=== PATIENT | male | born 1970 | race Caucasian/White ===

== ENCOUNTER 2017-01-31 10:50 | Emergency (ER) | payer SELFPAY ==
[~2017-01-31] VITALS: Ht 175.3 cm; Wt 83.0 kg
[~2017-01-31 10:50] MED LIST: PENI500T PO; TRAM50TA PO
[2017-01-31 11:04] VITALS: BP 167/90
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
== END 2017-01-31 11:44 | disposition left against medical advice (07) ==
LOC: ER 10:50
DX: L03.114 Cellulitis of left upper limb (principal); L02.414 Cutaneous abscess of left upper limb; I10 Essential (primary) hypertension; F20.9 Schizophrenia, unspecified; F12.10 Cannabis abuse, uncomplicated; F15.10 Other stimulant abuse, uncomplicated
CPT/HCPCS: 99281

== ENCOUNTER 2017-02-01 09:04 | Emergency (ER) | payer SELFPAY ==
[~2017-02-01] VITALS: Ht 172.7 cm; Wt 83.9 kg
--- NOTE | 2017-02-01 09:42 | PHYS DOC ---
Past History Past Medical History: Hypertension Past Surgical History: Other Alcohol Use: None Additional Alcohol Information: denies use Drug Use: None Social History Narrative: denies use of illicit drugs Adult General Chief Complaint Chief Complaint: UPPER EXTREMITY SWELLING HPI HPI 46-year-old male presenting to the emergency department today with left arm swelling and pain. He reports falling and sustaining an abrasion to the volar surface of his left forearm. He reports this happened 3 days ago. Since then he is noticed worsening redness with swelling in his left forearm. Currently he denies having pain but he does have pain in his forearm occasionally which she describes as sharp nonradiating mild and without alleviating factors. He denies numbness weakness or tingling. Review of systems is negative for chest pain shortness of breath abdominal pain. He reports feeling chills at home. All other review of systems is negative unless otherwise noted in history of present illness. Review of Systems Review of Systems SEE ABOVE. Current Medications Current Medications Current Medications Medications (Trade) Dose Ordered Sig/Negar Start Time Stop Time Status Last Admin Dose Admin Sodium Chloride 500 ml @ 0 mls/hr 1X ONCE 02/01/17 09:30 02/01/17 09:31 UNV Allergies Allergies Allergies Coded Allergies Type Severity Reaction Last Updated Verified No Known Drug Allergies 02/24/16 No Physical Exam Physical Exam Constitutional: Well developed, well nourished, no acute distress, non-toxic appearance. HENT: Normocephalic, atraumatic, bilateral external ears normal, oropharynx moist, no oral exudates, nose normal. [] Eyes: PERRLA, EOMI, conjunctiva normal, no discharge. [] Neck: Normal range of motion, no tenderness, supple, no stridor. Cardiovascular:Heart rate regular rhythm, no murmur [] Lungs & Thorax: Bilateral breath sounds clear to auscultation [] Abdomen: Bowel sounds normal, soft, no tenderness, no masses, no pulsatile masses. [] Skin: Warm, dry, no erythema, no rash. Back: No tenderness, no CVA tenderness. [] Extremities: The patient's left upper extremity is warm to touch with erythema extending from the wrist to the elbow. There is fluctuance in the volar surface midway between the wrist and the elbow. The arm is swollen. There is no crepitus to palpation. Palpable pulse distally with 2 second cap refill. The patient is able to given a okay sign, given a thumbs up, and cross fingers without difficulty. Normal sensation in the motor ulnar and radial nerve distribution.. Neurologic: Alert and oriented X 3, normal motor function, normal sensory function, no focal deficits noted. [] Psychologic: Affect normal, judgement normal, mood normal. [] Current Patient Data Vital Signs Vital Signs Date Time Temp Pulse Resp B/P (MAP) Pulse Ox O2 Delivery O2 Flow Rate FiO2 02/01/17 09:10 98.6 107 18 95 Room Air EKG EKG [] Radiology/Procedures Radiology/Procedures [] Course & Med Decision Making Course & Med Decision Making Pertinent Labs and Imaging studies reviewed. (See chart for details) [] 46-year-old male presenting to the emergency department today with left arm cellulitis and abscess formation. IV established and blood work obtained. 500 mL bolus of saline was placed. Pt was placed at an nothing by mouth status. X- ray unremarkable. The patient was then transferred to [facility] for IV antibiotics and for orthopedic surgery consultation for abscess debridement possibly in the operating room. I discussed the case with our orthopedic surgeon Dr. Emerson. Dragon Disclaimer Dragon Disclaimer This chart was dictated in whole or in part using Voice Recognition software in a busy, high-work load, and often noisy Emergency Department environment. It may contain unintended and wholly unrecognized errors or omissions. Departure Departure: Impression: Primary Impression: Abscess of left forearm Additional Impression: Cellulitis of left forearm Disposition: ADMITTED INPATIENT Admitting Physician: Other Condition: STABLE Referrals: JEET LOOMIS APRN (PCP) Critical Care Time Critical care time was 35 minutes exclusive of procedures. Time was spent evaluating the patient, reviewing x-rays, reviewing blood work, discussing with the admitting and consulting providers, and coordinating the patient transferred to appropriate care. Limb threatening illness. Problem Qualifiers THO CISNEROS MD February 01, 2017 09:42
[2017-02-01] MEDS ORDERED: VANCOMYCIN PER PHARMACY MC PRN (09:45)
[2017-02-01] MEDS ORDERED: IV NORMAL SALINE 500ML 500 ML IV ONE (10:00)
[2017-02-01] MEDS ORDERED: PIP/TAZO PER PHARMACY MC PRN (10:00)
[2017-02-01 10:01] LABS: BASO # 0.1 x10^3/uL (0.0-0.2); BASO % 0 % (0-3); EOS # 0.1 x10^3/uL (0.0-0.7); EOS % 0 % (0-3); HEMOGLOBIN 13.1 g/dL (13.0-17.5); LYMPH # 1.8 x10^3/uL (1.0-4.8); LYMPH % 10 % (24-48); MEAN CORPUSCULAR HEMOGLOBIN 30 pg (25-35); MEAN CORPUSCULAR HGB CONC 35 g/dL (31-37); MEAN CORPUSCULAR VOLUME 87 fL (79-100); MONO # 1.7 x10^3/uL (0.0-1.1); MONO % 10 % (0-9); NEUT # 13.7 x10^3uL (1.8-7.7); NEUT % 79 % (31-73); PLATELET COUNT 262 x10^3/uL (140-400); RED BLOOD COUNT 4.37 x10^6/uL (4.30-5.70); WHITE BLOOD COUNT 17.3 x10^3/uL (4.0-11.0)
[2017-02-01] MEDS ORDERED: PIPERACILLIN/TAZOBACTAM 3.375 GM VIAL IV ONE (10:03)
[2017-02-01] MEDS ORDERED: IV NORMAL SALINE 50ML 50 ML ONE (10:03)
[2017-02-01 10:04] LABS: CALCIUM 8.9 mg/dL (8.5-10.1); CREATININE 0.9 mg/dL (0.7-1.3); GFR 90.1; POTASSIUM 3.7 mmol/L (3.5-5.1)
[2017-02-01] MEDS ORDERED: PIPERACILLIN/TAZOBACTAM 3.375 GM in IV NORMAL SALINE 50ML 50 ML IV ONE (10:15)
--- NOTE | 2017-02-01 10:20 | RAD ---
Exam performed: 2 views leftforearm. Clinical indication: Patient fell on 01/29/17 with swelling. Increasing swelling and redness with hot to touch with purulent discharge Date of Service: 02/01/17 Comparison: None available Findings: Two-View radiograph examination of the forearm to include most of the wrist and elbow reveal the osseous structures to be intact and well aligned. There is diffuse soft tissue swelling in the left forearm with a more focal soft tissue swelling in the mid forearm. A definite foreign body is not detected. Impression: 1. Soft tissue swelling in the left forearm with a more focal swelling in the mid forearm region. An underlying abscess is not excluded. Correlate with clinical findings. 2. No underlying bony abnormality is seen.
[2017-02-01 10:41] LABS: % BANDS 1 % (0-9); % BASOS 1 % (0-3); % LYMPHS 15 % (24-48); % MONOS 13 % (0-10); % SEGS 70 % (35-66); PLT ESTIMATE ADEQUATE (ADEQUATE)
[2017-02-01] MEDS ORDERED: IV NORMAL SALINE 1,000ML 1,000 ML IV ONE (10:45)
[2017-02-01 11:10] VITALS: BP 144/91
[2017-02-01] MEDS ORDERED: VANCOMYCIN 2 GM in IV NORMAL SALINE 500ML 500 ML IV ONE (11:30)
== END 2017-02-01 11:20 | disposition short-term general hospital (02) ==
LOC: ER 09:04 → EEVIPCON 09:04 → ER 11:20
DX: L03.114 Cellulitis of left upper limb (principal); L02.414 Cutaneous abscess of left upper limb; I10 Essential (primary) hypertension
CPT/HCPCS: 36415; 73090; 80048; 83605; 85007; 85027; 87040; 96365; 99291; J2543; J7040

== ENCOUNTER 2017-02-11 10:58 | Emergency (ER) | payer SELFPAY ==
[~2017-02-11] VITALS: Ht 175.3 cm; Wt 81.6 kg
[2017-02-11 11:12] VITALS: BP 163/98
--- NOTE | 2017-02-11 17:50 | ED.ADGEN ---
Past History Past Medical History: Hypertension Past Surgical History: Other Alcohol Use: None Drug Use: None Adult General Chief Complaint Chief Complaint Dental pain, arm pain HPI HPI Patient is a 46-year-old male released from [facility] for treatment arm abscess who presents with complaints of continued arm pain and dental abscess. She did have wound VAC system in place which she removed by himself. Patient has not follow-up with his PCP or surgeon. Patient angry, verbally aggressive with posturing towards ED staff members demanding pain medications upon arrival. Review of Systems Review of Systems ROS as per HPI. Allergies Allergies Allergies Coded Allergies Type Severity Reaction Last Updated Verified No Known Drug Allergies 02/24/16 No Physical Exam Physical Exam Constitutional: Well developed, well nourished, no acute distress, non-toxic appearance. HENT: Normocephalic, atraumatic, bilateral external ears normal, oropharynx moist, no oral exudates, nose normal. Eyes: PERRL.auscultation [ Neurologic: Alert and oriented X 3, normal motor function, normal sensory function, no focal deficits noted. Psychologic: Affect, agitated Current Patient Data Vital Signs Vital Signs Date Time Temp Pulse Resp B/P (MAP) Pulse Ox O2 Delivery O2 Flow Rate FiO2 02/11/17 11:12 98.2 103 18 97 Room Air EKG EKG [] Radiology/Procedures Radiology/Procedures [] Course & Med Decision Making Course & Med Decision Making Pertinent Labs and Imaging studies reviewed. (See chart for details) [Security requested on ED arrival due to patient's verbal threats and physical posturing towards nursing staff members. Patient provided a medication for discharge instruction follow-up with PCP and dentist regarding further evaluation of and and dental caries] Final Impression Final Impression [1. dental pain 2. arm pain 3. drug seeking behavior] Problems: Dragon Disclaimer Dragon Disclaimer This electronic medical record was generated, in whole or in part, using a voice recognition dictation system. ARMIDA NUÑEZ DO February 11, 2017 17:50
== END 2017-02-11 11:21 | disposition home or self-care (01) ==
LOC: ER 10:58
DX: K08.89 Other specified disorders of teeth and supporting structures (principal); M79.603 Pain in arm, unspecified; I10 Essential (primary) hypertension; Z76.5 Malingerer [conscious simulation]
CPT/HCPCS: 99281

== ENCOUNTER 2017-02-14 11:22 | Emergency (ER) | payer SELFPAY ==
[~2017-02-14] VITALS: Ht 175.3 cm; Wt 83.0 kg
[2017-02-14 11:22] VITALS: BP 140/67
[2017-02-14] MEDS ORDERED: NEOMYCIN/BACITRAC/POLY TOPICAL OINTMENT 28GM TUBE. TP ONE ×2 (12:25→12:30)
--- NOTE | 2017-02-14 12:34 | PHYS DOC ---
Past History Past Medical History: Hypertension Past Surgical History: Other Alcohol Use: None Drug Use: None Adult General Chief Complaint Chief Complaint: WOUND CHECK HPI HPI This 46-year-old man presents with a wound on his left forearm for aspect these had for quite some time. He has had a some sort of a wound dressing on it and a sponge dressing in it at the present time but he has no idea how he got it. He states that he is homeless and walks from hospital to hospital and he just wants pain medications now Review of Systems Review of Systems Constitutional: Denies fever or chills [] Eyes: Denies change in visual acuity, redness, or eye pain [] HENT: Denies nasal congestion or sore throat [] Respiratory: Denies cough or shortness of breath [] Cardiovascular: No additional information not addressed in HPI [] GI: Denies abdominal pain, nausea, vomiting, bloody stools or diarrhea [] : Denies dysuria or hematuria [] Musculoskeletal: Denies back pain or joint pain [] Integument: Denies rash or skin lesions [] Neurologic: Denies headache, focal weakness or sensory changes [] Endocrine: Denies polyuria or polydipsia [] Current Medications Current Medications Current Medications Medications (Trade) Dose Ordered Sig/Negar Start Time Stop Time Status Last Admin Dose Admin Neomycin/ Polymyxin/ Bacitracin (Triple Antibiotic) 1 juan 1X ONCE 02/14/17 12:30 02/14/17 12:31 Allergies Allergies Allergies Coded Allergies Type Severity Reaction Last Updated Verified No Known Drug Allergies 02/24/16 No Physical Exam Physical Exam Constitutional: Well developed, well nourished, no acute distress, non-toxic appearance. The patient appears unkempt] HENT: Normocephalic, atraumatic, bilateral external ears normal, oropharynx moist, no oral exudates, nose normal. [] Eyes: PERRLA, EOMI, conjunctiva normal, no discharge. [] Neck: Normal range of motion, no tenderness, supple, no stridor. [] Cardiovascular:Heart rate regular rhythm, no murmur [] Lungs & Thorax: Bilateral breath sounds clear to auscultation [] Abdomen: Bowel sounds normal, soft, no tenderness, no masses, no pulsatile masses. [] Skin: Warm, dry, no erythema, no rash. Patient is an open wound measuring about a centimeters by about 10 cm in the left forearm. It is full-thickness wound going down to the muscles there is a little bit of purulence at the base and some minimal erythema around the edges Back: No tenderness, no CVA tenderness. [] Extremities: No tenderness, no cyanosis, no clubbing, ROM intact, no edema. Patient has an area measuring 10 cm x 8 cm of full-thickness skin loss with some purulence at the base is a slight amount of erythema around the edges Neurologic: Alert and oriented X 3, normal motor function, normal sensory function, no focal deficits noted. [] Psychologic: Affect normal, judgement normal, mood normal. [] Current Patient Data Vital Signs Vital Signs Date Time Temp Pulse Resp B/P (MAP) Pulse Ox O2 Delivery O2 Flow Rate FiO2 02/14/17 11:22 98.9 99 18 98 Room Air EKG EKG [] Radiology/Procedures Radiology/Procedures [] Impressions: Open wound left forearm Course & Med Decision Making Course & Med Decision Making Pertinent Labs and Imaging studies reviewed. (See chart for details) wound culture was taken the wound was dressed with damp to dry dressing and an Oral wrap he was given follow-up placed on clindamycin and hydrocodone [] Dragon Disclaimer Dragon Disclaimer This chart was dictated in whole or in part using Voice Recognition software in a busy, high-work load, and often noisy Emergency Department environment. It may contain unintended and wholly unrecognized errors or omissions. Departure Departure: Referrals: JEET LOOMIS APRN (PCP) BRANT OJEDA MD February 14, 2017 12:34
[2017-02-14] MEDS ORDERED: HYDR-2758 PO (12:42)
[2017-02-14] MEDS ORDERED: CLIN300C8 PO (12:42)
== END 2017-02-14 12:48 | disposition home or self-care (01) ==
LOC: ER 11:22
DX: S51.802A Unspecified open wound of left forearm, initial encounter (principal); I10 Essential (primary) hypertension; Z59.0 Homelessness; X58.XXXA Exposure to other specified factors, initial encounter; Y93.89 Activity, other specified; Y92.89 Other specified places as the place of occurrence of the external cause; Y99.8 Other external cause status
CPT/HCPCS: 87070; 99283

== ENCOUNTER 2017-02-18 23:38 | Emergency (ER) | payer SELFPAY ==
[~2017-02-18] VITALS: Ht 175.3 cm; Wt 83.0 kg
[~2017-02-18 23:38] MED LIST changes: +CLIN300C8 PO; +HYDR-2758 PO
[2017-02-19] VITALS: BP 153/91
--- NOTE | 2017-02-19 00:07 | ED.ADGEN ---
Past History Past Medical History: Hypertension Past Surgical History: No Surgical History Alcohol Use: Occasionally Drug Use: Methamphetamine Adult General Chief Complaint Chief Complaint Wound evaluation HPI HPI Patient is a 46-year-old homeless male with history of IV drug abuse evaluation of left forearm wound. Patient previously admitted to [facility] for surgical debridement of wound with wound VAC placed. Patient left AGAINST MEDICAL ADVICE with wound VAC in place. He has since been living in the [facility] under a bridge. He periodically checks into the emergency department for evaluation of the wound and request for pain control. Patient was seen in this facility with the same complaint one week ago by this provider in 4 days ago by a colleague. Was recently prescribed clindamycin and ibuprofen which he is taking and is currently out of hydrocodone and is requesting refill. No other acute symptoms or complaints. Review of Systems Review of Systems Review symptoms as per history of present illness. Allergies Allergies Allergies Coded Allergies Type Severity Reaction Last Updated Verified No Known Drug Allergies 02/24/16 No Physical Exam Physical Exam Constitutional: Well developed, well nourished, no acute distress, non-toxic appearance. [] HENT: Normocephalic, atraumatic, bilateral external ears normal, oropharynx moist, no oral exudates, nose normal. [] Eyes: PERRLA, EOMI, conjunctiva normal, no discharge. [] Neck: Normal range of motion, no tenderness, supple, no stridor. [] Cardiovascular:Heart rate regular rhythm, no murmur [] Lungs & Thorax: Bilateral breath sounds clear to auscultation [] Abdomen: Bowel sounds normal, soft, no tenderness, no masses, no pulsatile masses. [] Skin: Warm, dry, no erythema, no rash. [] Back: No tenderness, no CVA tenderness. [] Extremities: Open 10 centimeters surgical incision to left flexor forearm with exposed muscle. There is slight erythema surrounding the wound margins purulent drain. No streaking or induration. Neurologic: Alert and oriented X 3, normal motor function, normal sensory function, no focal deficits noted. [] Psychologic: Affect normal, judgement normal, mood normal. [] Current Patient Data Vital Signs Vital Signs Date Time Temp Pulse Resp B/P (MAP) Pulse Ox O2 Delivery O2 Flow Rate FiO2 02/18/17 23:55 98.0 84 20 96 EKG EKG [] Radiology/Procedures Radiology/Procedures [] Course & Med Decision Making Course & Med Decision Making Pertinent Labs and Imaging studies reviewed. (See chart for details) [Chronically nonhealing open left forearm wound. Currently does not appear infected. Most recent culture + MRSA, septal to clindamycin. Wound dressed in the emergency department and is nations instructed follow-up with PCP. Short course of hydrocodone prescribed. ] Final Impression Final Impression [1. Wound evaluation.] Problems: Dragon Disclaimer Dragon Disclaimer This electronic medical record was generated, in whole or in part, using a voice recognition dictation system. ARMIDA NUÑEZ DO February 19, 2017 00:07
== END 2017-02-19 00:20 | disposition home or self-care (01) ==
LOC: ER 23:38
DX: Z76.0 Encounter for issue of repeat prescription (principal); S51.802D Unspecified open wound of left forearm, subsequent encounter; I10 Essential (primary) hypertension; F15.10 Other stimulant abuse, uncomplicated; X58.XXXD Exposure to other specified factors, subsequent encounter
CPT/HCPCS: 99283

== ENCOUNTER 2017-02-21 06:07 | Emergency (ER) | payer SELFPAY ==
[~2017-02-21] VITALS: Ht 172.7 cm; Wt 83.0 kg
[~2017-02-21 06:07] MED LIST changes: +CLINDAMYCIN 900 MG/6 ML VIAL. IM ONE
[2017-02-21] MEDS ORDERED: CLINDAMYCIN 900 MG/6 ML VIAL. ONE (06:45)
[2017-02-21 07:00] VITALS: BP 158/104
--- NOTE | 2017-02-21 07:11 | ED.ADGEN ---
Past History Past Medical History: Hypertension Past Surgical History: No Surgical History Alcohol Use: Occasionally Drug Use: Methamphetamine Adult General HPI HPI Patient is a 56-year-old man, history of IV drug abuse, hypertension, who presents emergency department for a wound check. Patient has been seen frequently in the emergency department for similar wound checks, after I&D with debridement was performed a [facility], patient is at wound VAC in place, but did leave AGAINST MEDICAL ADVICE from [facility]. Patient denies any any new discharge drainage or increasing pain from the arm, fevers or chills, any nausea or vomiting, any chest pain or shortness breath. He is very animated in the emergency department, a cooperative with questioning. He states that he did not take his medications after an encounter with the police were there were taken away. He does have an unfilled prescription for Percocet with him for her previous ED visit. Patient's tetanus is up-to-date. Review of Systems Review of Systems Constitutional: Denies fever or chills [] Eyes: Denies change in visual acuity, redness, or eye pain [] HENT: Denies nasal congestion or sore throat [] Respiratory: Denies cough or shortness of breath [] Cardiovascular: No additional information not addressed in HPI [] GI: Denies abdominal pain, nausea, vomiting, bloody stools or diarrhea [] : Denies dysuria or hematuria [] Musculoskeletal: Denies back pain or joint pain [] pain in the left upper extremity. Integument: Denies rash or skin lesions [] Current Medications Current Medications Current Medications Medications (Trade) Dose Ordered Sig/[facility] Start Time Stop Time Status Last Admin Dose Admin Clindamycin Phosphate (Cleocin) 900 mg STK-MED ONCE 02/21/17 06:45 02/21/17 06:46 DC Allergies Allergies Allergies Coded Allergies Type Severity Reaction Last Updated Verified No Known Drug Allergies 02/24/16 No Physical Exam Physical Exam Constitutional: Well developed, well nourished, no acute distress, non-toxic appearance. [] HENT: Normocephalic, atraumatic, bilateral external ears normal, oropharynx moist, no oral exudates, nose normal. [] Eyes: PERRLA, EOMI, conjunctiva normal, no discharge. [] Neck: Normal range of motion, no tenderness, supple, no stridor. [] Cardiovascular:Heart rate regular rhythm, no murmur, S1, S2, rubs or gallops. [] Lungs & Thorax: Bilateral breath sounds clear to auscultation, no wheezing, rhonchi, rales. No chest or crepitus or tenderness. [] Abdomen: Bowel sounds normal, soft, no tenderness, no masses, no pulsatile masses. [] Skin: Warm, dry, no erythema, no rash. [] Back: No tenderness, no CVA tenderness. [] Extremities: Patient with an centimeter by 5 cm as widest point post-excisional wound on his left forearm, muscle fascia visible, which is clean, clean bandages above, patient with a dirty outer oral wrap and base, no discharge or drainage, no evidence of active infection, no other concerning findings identified no cyanosis, no clubbing, ROM intact, no edema. [] Neurologic: Alert and oriented X 3, normal motor function, normal sensory function, no focal deficits noted. [] Psychologic: Affect normal, judgement normal, mood normal. [] EKG EKG Not indicated. [] Radiology/Procedures Radiology/Procedures Not indicated. [] Course & Med Decision Making Course & Med Decision Making Pertinent Labs and Imaging studies reviewed. (See chart for details) Wound examined and dressing change in the emergency department, Xeroform gauze with ABDs and Oral wrap placed. Patient has been following up in the emergency department for wound checks on a regular basis. Is not complaining of pain at this time. Patient agreeable to receiving an IM injection of clindamycin, which was administered without issue. He was also given a refill of his prescriptions for both tramadol and clindamycin which she states he does not currently have with him. He is noted to have a prescription for Percocet which is unfilled. Instructed to continue using ibuprofen and prescription medications as needed for discomfort, importance of good wound care discussed, he does have wound care and follow-up instructions have been discussed previously, and he states he is aware of concerning symptoms that prompt return to the ED for additional evaluation, as well as follow-up. Patient is currently homeless and living under a bridge, but does not request any additional assistance at this time, he has been given information previously per nursing staff., Regarding both housing availability, and clinic follow-up. Patient noted to be hypertensive in the emergency department, and is a history of hypertension, but is also extremely active and moving his extremity during attempts to blood pressure, initially 170s over 110, repeat is 158/104, heart rate is in the 80s, oxygen saturation is in the mid 90s, respiratory rate is 20 and unlabored. No evidence of acutely concerning findings on examination. Patient again given clear and detailed return instructions and precautions, reprinted prescriptions, discharged to follow-up as stated, and return to the ED for concerning symptoms as discussed. Final Impression Final Impression [] Problems: (1) Open wound of left forearm Qualifiers: Qualified Codes: S51.802D - Unspecified open wound of left forearm, subsequent encounter Dragon Disclaimer Dragon Disclaimer This electronic medical record was generated, in whole or in part, using a voice recognition dictation system. Departure Disposition: 01 HOME, SELF-CARE Condition: STABLE JASSON VOSS DO February 21, 2017 07:10
[2017-02-22] MEDS ORDERED: HYDR-2758 PO (17:12)
[2017-02-22] MEDS ORDERED: SULF1TAB24 PO (17:12)
== END 2017-02-21 07:05 | disposition home or self-care (01) ==
LOC: ER 06:07
DX: S51.802A Unspecified open wound of left forearm, initial encounter (principal); I10 Essential (primary) hypertension; F15.10 Other stimulant abuse, uncomplicated; X58.XXXA Exposure to other specified factors, initial encounter; Y93.89 Activity, other specified; Y99.8 Other external cause status; Y92.89 Other specified places as the place of occurrence of the external cause
CPT/HCPCS: 96372; 99283-25

== ENCOUNTER 2017-02-22 16:20 | Emergency (ER) | payer SELFPAY ==
[~2017-02-22] VITALS: Ht 172.7 cm; Wt 83.0 kg
[~2017-02-22 16:20] MED LIST changes: -CLINDAMYCIN 900 MG/6 ML VIAL. IM ONE
[2017-02-22 17:00] VITALS: BP 136/72
[2017-02-22] MEDS ORDERED: SULF1TAB24 PO (17:12)
[2017-02-22] MEDS ORDERED: HYDR-2758 PO (17:12)
[2017-02-22] MEDS ORDERED: HYDROmorphone PF 1 MG/ML DISP.SYRIN IM ONE (17:15)
[2017-02-22] MEDS ORDERED: cefTRIAXone IM 1 GM VIAL IM ONE (17:15)
[2017-02-22] MEDS ORDERED: LORazepam 1 MG TABLET PO ONE (17:15)
--- NOTE | 2017-02-23 07:02 | PHYS DOC ---
Past History Past Medical History: Hypertension, Other Past Surgical History: No Surgical History Alcohol Use: Occasionally Drug Use: Methamphetamine Adult General Chief Complaint Chief Complaint: WOUND CHECK HPI HPI 38-year-old male presenting to the emergency department today for a wound check. He had a debridement procedure that he did not allow to be completed after leaving AGAINST MEDICAL ADVICE. He is here for wound check and antibiotic therapy. Onset today. Location left arm. Duration intermittent. No alleviating factors. He has pain in his left arm that is sharp moderate intermittent. Review of systems is negative for chest pain shortness of breath nausea vomiting abdominal pain. All other review of systems is negative unless otherwise noted in history of present illness. Pertinent physical exam findings show a large 8 cm x 4 cm debrided wound that does not have associated cellulitis. It is healing poorly however the patient refuses to be admitted or have further medical treatment for this wound. He just desires antibiotics. ED course: The patient was given intramuscular antibiotics and pain medications and subsequently discharged home to follow up with PCP over the next 2-3 days. Review of Systems Review of Systems SEE ABOVE. Current Medications Current Medications Current Medications Medications (Trade) Dose Ordered Sig/Negar Start Time Stop Time Status Last Admin Dose Admin Ceftriaxone Sodium (Rocephin Im) 1 gm 1X ONCE 02/22/17 17:15 02/22/17 17:16 DC 02/22/17 17:15 1 GM Hydromorphone HCl (Dilaudid) 0.5 mg 1X ONCE 02/22/17 17:15 02/22/17 17:16 DC 02/22/17 17:15 0.5 MG Lorazepam (Ativan) 1 mg 1X ONCE 02/22/17 17:15 02/22/17 17:16 DC 02/22/17 17:15 1 MG Allergies Allergies Allergies Coded Allergies Type Severity Reaction Last Updated Verified No Known Drug Allergies 02/21/17 No Physical Exam Physical Exam Constitutional: Well developed, well nourished, no acute distress, non-toxic appearance. HENT: Normocephalic, atraumatic, bilateral external ears normal, oropharynx moist, no oral exudates, nose normal. [] Eyes: PERRLA, EOMI, conjunctiva normal, no discharge. Neck: Normal range of motion, no tenderness, supple, no stridor. [] Cardiovascular:Heart rate regular rhythm, no murmur Lungs & Thorax: Bilateral breath sounds clear to auscultation [] Abdomen: Bowel sounds normal, soft, no tenderness, no masses, no pulsatile masses. Skin: see above Back: No tenderness, no CVA tenderness. Extremities: see above. All extremities are neurovascularly intact. Neurologic: Alert and oriented X 3, normal motor function, normal sensory function, no focal deficits noted. [] Psychologic: Affect normal, judgement normal, mood normal. [] Current Patient Data Vital Signs Vital Signs Date Time Temp Pulse Resp B/P (MAP) Pulse Ox O2 Delivery O2 Flow Rate FiO2 02/22/17 17:15 16 99 Room Air 02/22/17 17:00 98.6 80 136/72 (93) EKG EKG [] Radiology/Procedures Radiology/Procedures [] Course & Med Decision Making Course & Med Decision Making Pertinent Labs and Imaging studies reviewed. (See chart for details) [] Dragon Disclaimer Dragon Disclaimer This chart was dictated in whole or in part using Voice Recognition software in a busy, high-work load, and often noisy Emergency Department environment. It may contain unintended and wholly unrecognized errors or omissions. Departure Departure: Impression: Primary Impression: Wound check, abscess Disposition: HOME, SELF-CARE Condition: STABLE Patient Instructions: Wound Infection, [id number] Scripts Hydrocodone Bit/Acetaminophen (HYDROCODONE-APAP 5-325 ) 1 Each Tablet 1 TAB PO PRN Q6HRS Y for PAIN, #4 TAB 0 Refills Prov: THO CISNEROS MD 02/22/17 Sulfamethoxazole/Trimethoprim (BACTRIM DS TABLET) 1 Each Tablet 1 TAB PO BID, #14 TAB Prov: THO CISNEROS MD 02/22/17 THO CISNEROS MD February 23, 2017 07:02
== END 2017-02-22 17:25 | disposition home or self-care (01) ==
LOC: ER 16:20
DX: Z48.01 Encounter for change or removal of surgical wound dressing (principal); L02.414 Cutaneous abscess of left upper limb; I10 Essential (primary) hypertension; F15.10 Other stimulant abuse, uncomplicated
CPT/HCPCS: 96372; 99284; J0696; J1170

== ENCOUNTER 2017-02-23 06:03 | Emergency (ER) | payer SELFPAY ==
[~2017-02-23] VITALS: Ht 172.7 cm; Wt 83.0 kg
[~2017-02-23 06:03] MED LIST changes: +SULF1TAB24 PO
--- NOTE | 2017-02-23 06:56 | PHYS DOC ---
Past History Past Medical History: Anxiety, Bipolar, Depression, Hypertension, Schizophrenia , Other Past Surgical History: No Surgical History Alcohol Use: Occasionally Drug Use: Methamphetamine Adult General Chief Complaint Chief Complaint: UPPER EXTREMITY PAIN HPI HPI 46-year-old male presenting to the emergency department today for wound examination and care. Onset today. Location left arm. Duration intermittent. No alleviating factors. I saw him yesterday. Review of systems is negative for fevers chills cough nausea vomiting. All other review of systems is negative unless otherwise noted in history of present illness. Pertinent physical exam findings show that the patient's wound is similar to the yesterdays evaluation. No change. ED course: 38-year-old male with chronic wound. Wound appears the same as yesterday. He received Rocephin yesterday so it is not time for his next antibiotic dosage. Today the patient is more with it and not appearing to be influenced by drug abuse. He is willing to be admitted to have his wound cared for. This is great! We will admit him to [facility] for surgical evaluation and IV antibiotic therapy. Review of Systems Review of Systems SEE ABOVE. Allergies Allergies Allergies Coded Allergies Type Severity Reaction Last Updated Verified No Known Drug Allergies 02/21/17 No Physical Exam Physical Exam Constitutional: Well developed, well nourished, no acute distress, non-toxic appearance. [] HENT: Normocephalic, atraumatic, bilateral external ears normal, oropharynx moist, no oral exudates, nose normal. [] Eyes: PERRLA, EOMI, conjunctiva normal, no discharge. [] Neck: Normal range of motion, no tenderness, supple, no stridor. [] Cardiovascular:Heart rate regular rhythm, no murmur [] Lungs & Thorax: Bilateral breath sounds clear to auscultation [] Abdomen: Bowel sounds normal, soft, no tenderness, no masses, no pulsatile masses. [] Skin: see above Back: No tenderness, no CVA tenderness. [] Extremities: All extremities are neurovascularly intact. Neurologic: Alert and oriented X 3, normal motor function, normal sensory function, no focal deficits noted. [] Psychologic: Affect normal, judgement normal, mood normal. [] Current Patient Data Vital Signs Vital Signs Date Time Temp Pulse Resp B/P (MAP) Pulse Ox O2 Delivery O2 Flow Rate FiO2 02/23/17 06:03 97.7 64 16 99 Room Air EKG EKG [] Radiology/Procedures Radiology/Procedures [] Course & Med Decision Making Course & Med Decision Making Pertinent Labs and Imaging studies reviewed. (See chart for details) [] Dragon Disclaimer Dragon Disclaimer This chart was dictated in whole or in part using Voice Recognition software in a busy, high-work load, and often noisy Emergency Department environment. It may contain unintended and wholly unrecognized errors or omissions. Departure Departure: Impression: Primary Impression: Wound check, abscess Disposition: ADMITTED INPATIENT Condition: STABLE Referrals: KAYLEN ALMANZAR (PCP) THO CISNEROS MD February 23, 2017 06:56
[2017-02-23 08:00] LABS: BASO % 1 % (0-3); EOS # 0.3 x10^3/uL (0.0-0.7); EOS % 4 % (0-3); HEMATOCRIT 35.2 % (39.0-53.0); LYMPH % 26 % (24-48); MEAN CORPUSCULAR HEMOGLOBIN 30 pg (25-35); MEAN CORPUSCULAR HGB CONC 34 g/dL (31-37); MEAN CORPUSCULAR VOLUME 88 fL (79-100); MONO # 0.8 x10^3/uL (0.0-1.1); MONO % 10 % (0-9); NEUT # 4.7 x10^3uL (1.8-7.7); NEUT % 60 % (31-73); PLATELET COUNT 317 x10^3/uL (140-400); RED CELL DISTRIBUTION WIDTH 13.9 % (11.5-14.5); WHITE BLOOD COUNT 7.8 x10^3/uL (4.0-11.0)
[2017-02-23 08:13] LABS: ALBUMIN 3.2 g/dL (3.4-5.0); CALCIUM 8.6 mg/dL (8.5-10.1); DIRECT BILIRUBIN 0.1 mg/dL (0.0-0.2); GFR 79.8; POTASSIUM 3.8 mmol/L (3.5-5.1); TOTAL BILIRUBIN 0.5 mg/dL (0.2-1.0); TOTAL PROTEIN 6.7 g/dL (6.4-8.2)
[2017-02-23 08:30] VITALS: BP 139/73
[2017-02-23] MEDS ORDERED: HYDROmorphone PF 1 MG/ML DISP.SYRIN IV ONE (08:55)
== END 2017-02-23 08:54 | disposition other institution (70) ==
LOC: ER 06:03
DX: Z48.01 Encounter for change or removal of surgical wound dressing (principal); L02.414 Cutaneous abscess of left upper limb; I10 Essential (primary) hypertension; F20.9 Schizophrenia, unspecified; F15.10 Other stimulant abuse, uncomplicated
CPT/HCPCS: 36415; 80048; 80076; 83605; 83690; 85027; 96374; 99285; J1170

== ENCOUNTER 2017-03-04 04:01 | Emergency (ER) | payer SELFPAY ==
[2017-03-04 04:10] VITALS: BP 158/100
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
== END 2017-03-04 04:32 | disposition left against medical advice (07) ==
LOC: ER 04:01
DX: L03.114 Cellulitis of left upper limb (principal); F15.10 Other stimulant abuse, uncomplicated; F20.9 Schizophrenia, unspecified; F41.9 Anxiety disorder, unspecified; I10 Essential (primary) hypertension; F31.9 Bipolar disorder, unspecified
CPT/HCPCS: 99281

== ENCOUNTER 2017-03-11 18:39 | Emergency (ER) | payer SELFPAY ==
[~2017-03-11] VITALS: Ht 172.7 cm; Wt 83.0 kg
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
== END 2017-03-11 19:15 | disposition home or self-care (01) ==
LOC: ER 18:39
DX: S51.802A Unspecified open wound of left forearm, initial encounter (principal); M79.652 Pain in left thigh; F91.9 Conduct disorder, unspecified; F15.10 Other stimulant abuse, uncomplicated; F20.9 Schizophrenia, unspecified; I10 Essential (primary) hypertension; F31.9 Bipolar disorder, unspecified; X58.XXXA Exposure to other specified factors, initial encounter; Y93.89 Activity, other specified; Y99.8 Other external cause status; Y92.89 Other specified places as the place of occurrence of the external cause
CPT/HCPCS: 99283

== ENCOUNTER 2017-03-23 12:57 | Emergency (ER) | payer SELFPAY ==
[~2017-03-23] VITALS: Ht 172.7 cm; Wt 83.0 kg
[2017-03-23 13:00] VITALS: BP 162/100
== END 2017-03-23 14:20 | disposition home or self-care (01) ==
LOC: ER 12:57
DX: Z48.01 Encounter for change or removal of surgical wound dressing (principal); Z53.21 Procedure and treatment not carried out due to patient leaving prior to being seen by health care provider

== ENCOUNTER 2017-07-01 19:04 | Emergency (ER) | payer SELFPAY ==
[~2017-07-01] VITALS: Ht 172.7 cm; Wt 83.0 kg
[2017-07-01 19:20] VITALS: BP 165/123
--- NOTE | 2017-07-01 19:26 | PHYS DOC ---
General Chief Complaint: HEADACHE Stated Complaint: DENTAL/HEAD PAIN Time Seen by MD: 19:07 Source: patient, old records Exam Limitations: no limitations Problems: History of Present Illness Initial Comments Pt is 47/M to ED c/o dental pain. Pt states he's had severe pain right lower molars for 3-4 days. States he has DDS appt scheduled "middle of next week" and is here for pain medications. No jaw pain/DUNN/fever/chills, OTC meds not helping. Has methamphetamine history states he's sober denies opiate abuse history. No other c/o. Timing/Duration: other Severity: severe Location: dental Prearrival Treatment: over the counter meds Modifying Factors: improves with other Associated Symptoms: tooth pain Allergies: Coded Allergies: No Known Drug Allergies (Unverified , 02/21/17) Past Medical History Medical History: other (bipolar, anxiety, depression, HTN, schizophrenia) Surgical History: other (skin graft) Social History Smoker: non-smoker Alcohol: occasionally Drugs: other (h/o IV methamphetamine state's he's sober) Constitutional: denies chills, denies diaphoresis, denies fever, denies malaise Ears: denies dizziness, denies pain, denies tinnitus Nose: denies clots, denies congestion Mouth: see HPI Throat: denies neck stiffness, denies painful swallowing, denies difficulty with fluids Respiratory: denies cough, denies shortness of breath Gastrointestinal: denies nausea, denies vomiting Physical Exam General Appearance: no apparent distress Eyes: bilateral eye normal inspection, bilateral eye PERRL, bilateral eye EOMI Nose: normal inspection Mouth/Throat: other (caries noted between teeth 30-31, no gingival swell/ purulence no bony TTP) Neck: non-tender, supple Cardiovascular/Respiratory: normal peripheral pulses, no respiratory distress Neurologic/Psychiatric: body maker II-XII nml as tested, alert, normal mood/affect, oriented x 3 Skin: normal color, warm/dry Orders, Labs, Meds Pt advised he must f/u DDS, chronic dental pain not treated in ED. Pt expressed agreement/understanding with treatment plan. Departure Time of Disposition: 19:24 Disposition: 01 HOME, SELF-CARE Diagnosis: dental caries Condition: GOOD Patient Instructions: Dental Caries Additional Instructions: Drink plenty of fluids to avoid dehydration. OTC ibuprofen, oragel as needed for baseline pain control. Rx: amoxicillin, norco 5mg #10 Take medications with food to avoid nausea. Must follow up with your dentist this week as scheduled. Return to ED with new or changing symptoms. JH LU DO Jul 01, 2017 19:26
[2017-07-01] MEDS ORDERED: HYDR-971 PO (19:27)
[2017-07-01] MEDS ORDERED: AMOX500C PO (19:27)
== END 2017-07-01 19:40 | disposition home or self-care (01) ==
LOC: ER 19:04
DX: K02.9 Dental caries, unspecified (principal); I10 Essential (primary) hypertension; F20.9 Schizophrenia, unspecified; F41.9 Anxiety disorder, unspecified; F31.9 Bipolar disorder, unspecified
CPT/HCPCS: 99283

== ENCOUNTER 2017-07-23 19:31 | Emergency (ER) | payer SELFPAY ==
[~2017-07-23] VITALS: Ht 175.3 cm; Wt 86.8 kg
[~2017-07-23 19:31] MED LIST changes: +AMOX500C PO; +HYDR-971 PO
[2017-07-23 19:35] VITALS: BP 134/84
[2017-07-23] MEDS ORDERED: IBUPROFEN 400 MG TABLET. PO ONE (21:15)
--- NOTE | 2017-07-23 21:28 | PHYS DOC ---
Past History Past Medical History: Anxiety, Bipolar, Depression, Hypertension, Schizophrenia , Other Past Surgical History: Other Alcohol Use: Occasionally Drug Use: Methamphetamine Adult General Chief Complaint Chief Complaint: MECHANICAL FALL HPI HPI 47-year-old male with a history of anxiety bipolar depression and schizophrenia now presents the emergency department complaining of low back soreness after slip and fall. Patient states he slipped and fell backwards. His low back is been sore since. He is able to ambulate without difficulty. Normal bowel and bladder habits. No numbness or weakness of the legs. Patient has no other complaints Review of Systems Review of Systems Constitutional: Denies fever or chills [] Eyes: Denies change in visual acuity, redness, or eye pain [] HENT: Denies nasal congestion or sore throat [] Respiratory: Denies cough or shortness of breath [] Cardiovascular: No additional information not addressed in HPI [] GI: Denies abdominal pain, nausea, vomiting, bloody stools or diarrhea [] : Denies dysuria or hematuria [] Musculoskeletal: Denies back pain or joint pain [] Integument: Denies rash or skin lesions [] Neurologic: Denies headache, focal weakness or sensory changes [] Endocrine: Denies polyuria or polydipsia [] Current Medications Current Medications Current Medications Medications (Trade) Dose Ordered Sig/Negar Start Time Stop Time Status Last Admin Dose Admin Ibuprofen (Motrin) 800 mg 1X ONCE 07/23/17 21:15 07/23/17 21:16 DC Allergies Allergies Allergies Coded Allergies Type Severity Reaction Last Updated Verified No Known Drug Allergies 02/21/17 No Physical Exam Physical Exam L appearing patient no acute distress able emulate without difficulty. Mild soft tissue tenderness left lumbar distribution no CVA tenderness no bony midline tenderness no ecchymosis or step-off. No bony crepitus. Nontender hips and stable pelvis. No saddle anesthesia negative straight leg raise neurovascularly intact bilateral lower extremities. Remainder of exam is benign Constitutional: Well developed, well nourished, no acute distress, non-toxic appearance. [] HENT: Normocephalic, atraumatic, bilateral external ears normal, oropharynx moist, no oral exudates, nose normal. [] Eyes: PERRLA, EOMI, conjunctiva normal, no discharge. [] Neck: Normal range of motion, no tenderness, supple, no stridor. [] Cardiovascular:Heart rate regular rhythm, no murmur [] Lungs & Thorax: Bilateral breath sounds clear to auscultation [] Abdomen: Bowel sounds normal, soft, no tenderness, no masses, no pulsatile masses. [] Skin: Warm, dry, no erythema, no rash. [] Back: As above Extremities: No tenderness, no cyanosis, no clubbing, ROM intact, no edema. [] Neurologic: Alert and oriented X 3, normal motor function, normal sensory function, no focal deficits noted. [] Psychologic: Affect normal, judgement normal, mood normal. [] EKG EKG [] Radiology/Procedures Radiology/Procedures X-ray pelvis and L-spine unremarkable no fracture or acute abnormality interpreted by me[] Course & Med Decision Making Course & Med Decision Making Pertinent Labs and Imaging studies reviewed. (See chart for details) Signs and symptoms consistent with lumbar strain after a minor fall. No bony tenderness. X-rays unremarkable. Patient improved after NSAIDs. No further workup or treatment indicated. Patient able to ambulate without difficulty. Neurovascularly intact bilateral lower extremities. He agrees with outpatient follow-up with PCP tomorrow and strict return precautions given [] Dragon Disclaimer Dragon Disclaimer This chart was dictated in whole or in part using Voice Recognition software in a busy, high-work load, and often noisy Emergency Department environment. It may contain unintended and wholly unrecognized errors or omissions. Departure Departure: Impression: Primary Impression: Lumbar strain Additional Impression: Low back pain Disposition: 01 HOME, SELF-CARE Condition: GOOD Referrals: TONY JUSTIN DO (PCP) Patient Instructions: Back Pain, Adult Additional Instructions: You have low back strain. Rest and apply ice as needed. Take 800 g of ibuprofen every 6 hours. Avoid strenuous activity until her symptoms are resolved. Your x- ray showed no sign of fracture. Follow-up with your doctor tomorrow for reevaluation and further treatment as needed. Problem Qualifiers DALLAS CENTENO MD Jul 23, 2017 21:28
--- NOTE | 2017-07-24 08:03 | RAD ---
LUMBAR SPINE 2-3V Clinical Indication: fall, back pain Comparison: None. Findings: There are 5 nonrib-bearing lumbar-type vertebral bodies. Straightening of the normal lumbar lordosis. No listhesis. Mild multilevel body height loss. No evidence of acute fracture. Mild multilevel degenerative changes of the visualized spine. No significant soft tissue abnormality. IMPRESSION: No evidence of acute fracture.
--- NOTE | 2017-07-24 08:04 | RAD ---
PELVIS Clinical Indication: fall Comparison: None. Findings: No acute fracture or malalignment. The joint spaces are maintained. Bony mineralization is normal for the patient's age. No significant soft tissue abnormality. No radiopaque foreign body. IMPRESSION: No acute fracture or malalignment.
== END 2017-07-23 21:38 | disposition home or self-care (01) ==
LOC: ER 19:31
DX: S39.012A Strain of muscle, fascia and tendon of lower back, initial encounter (principal); I10 Essential (primary) hypertension; F41.9 Anxiety disorder, unspecified; F31.9 Bipolar disorder, unspecified; F20.9 Schizophrenia, unspecified; F15.10 Other stimulant abuse, uncomplicated; W01.0XXA Fall on same level from slipping, tripping and stumbling without subsequent striking against object, initial encounter; Y93.89 Activity, other specified; Y99.8 Other external cause status; Y92.89 Other specified places as the place of occurrence of the external cause
CPT/HCPCS: 72100; 72170; 99284

== ENCOUNTER 2017-08-04 16:23 | Emergency (ER) | payer SELFPAY ==
[~2017-08-04] VITALS: Ht 175.3 cm; Wt 86.8 kg
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
[2017-08-04] MEDS ORDERED: IBUP600T16 PO (17:41)
[2017-08-04] MEDS ORDERED: NEOMYCIN/BACITRAC/POLY TOPICAL OINTMENT 28GM TUBE. TP ONE (17:45)
[2017-08-04 17:53] VITALS: BP 140/78
[2017-08-04] MEDS ORDERED: NEOMY/BACITR/POLYMYXIN OINT PACKET. TP ONE (18:00)
== END 2017-08-04 17:53 | disposition home or self-care (01) ==
LOC: ER 16:23
DX: S60.453A Superficial foreign body of left middle finger, initial encounter (principal); F20.9 Schizophrenia, unspecified; F41.9 Anxiety disorder, unspecified; I10 Essential (primary) hypertension; F31.9 Bipolar disorder, unspecified; F15.10 Other stimulant abuse, uncomplicated; X58.XXXA Exposure to other specified factors, initial encounter; Y93.89 Activity, other specified; Y99.8 Other external cause status; Y92.89 Other specified places as the place of occurrence of the external cause
CPT/HCPCS: 99284

== ENCOUNTER 2017-08-12 10:04 | Emergency (ER) | payer SELFPAY ==
[~2017-08-12] VITALS: Ht 172.7 cm; Wt 86.2 kg
[~2017-08-12 10:04] MED LIST changes: +IBUP600T16 PO
[2017-08-12] MEDS ORDERED: CEPH500C PO (10:23)
[2017-08-12] MEDS ORDERED: ACET-704 PO (10:23)
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
[2017-08-12 10:31] VITALS: BP 172/95
== END 2017-08-12 10:32 | disposition home or self-care (01) ==
LOC: ER 10:04
DX: S60.945D Unspecified superficial injury of left ring finger, subsequent encounter (principal); D89.9 Disorder involving the immune mechanism, unspecified; F15.10 Other stimulant abuse, uncomplicated; Z72.0 Tobacco use; X58.XXXD Exposure to other specified factors, subsequent encounter
CPT/HCPCS: 99283

== ENCOUNTER 2017-12-03 13:13 | Emergency (ER) | payer OTHER ==
[~2017-12-03 13:13] MED LIST changes: +ACET-704 PO; +CEPH500C PO
[2017-12-03 13:15] VITALS: BP 135/70
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
== END 2017-12-03 13:35 | disposition left against medical advice (07) ==
LOC: ER 13:13
DX: R68.84 Jaw pain (principal); Z53.21 Procedure and treatment not carried out due to patient leaving prior to being seen by health care provider; Y08.89XA Assault by other specified means, initial encounter; Y93.89 Activity, other specified; Y99.8 Other external cause status; Y92.89 Other specified places as the place of occurrence of the external cause

== ENCOUNTER 2018-01-11 10:08 | Emergency (ER) | payer OTHER ==
[~2018-01-11] VITALS: Ht 172.7 cm; Wt 90.7 kg
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
[2018-01-11] MEDS: LISINOPRIL 10 MG TABLET PO ONE (10:39)
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
[2018-01-11] MEDS ORDERED: LISINOPRIL 5 MG TABLET. PO ONE (10:45)
[2018-01-11 11:00] VITALS: BP 170/96
== END 2018-01-11 11:00 | disposition home or self-care (01) ==
LOC: ER 10:08
DX: K02.9 Dental caries, unspecified (principal); R68.84 Jaw pain; F41.9 Anxiety disorder, unspecified; F31.9 Bipolar disorder, unspecified; I10 Essential (primary) hypertension; F20.9 Schizophrenia, unspecified
CPT/HCPCS: 70110; 99284

== ENCOUNTER → 2018-06-16 | Outpatient (CLI) | payer OTHER ==
[2018-06-16 10:20] LABS: ALBUMIN 3.6 g/dL (3.4-5.0); CALCIUM 9.5 mg/dL (8.5-10.1); CREATININE 1.1 mg/dL (0.7-1.3); GFR 70.9; TOTAL BILIRUBIN 0.3 mg/dL (0.2-1.0); TOTAL PROTEIN 7.3 g/dL (6.4-8.2)
[2018-06-16 17:11] LABS: TESTOSTERONE TOTAL 435 ng/dL (264-916)
[2018-06-19 07:12] LABS: DHEA 184 ng/dL (31-701)
== END | disposition home or self-care (01) ==
LOC: LAB 09:26
PROVIDERS: ATTEND General Practice
DX: E55.9 Vitamin D deficiency, unspecified (principal); R79.89 Other specified abnormal findings of blood chemistry; I10 Essential (primary) hypertension; Z87.891 Personal history of nicotine dependence
CPT/HCPCS: 36415; 80053; 82306; 84403

== ENCOUNTER 2018-10-09 10:34 | Emergency (ER) | payer OTHER ==
[~2018-10-09] VITALS: Ht 182.9 cm; Wt 90.7 kg
[~2018-10-09 10:34] MED LIST changes: +HYDR-2155 PO; -HYDR-2758 PO; +HYDR-3165 PO; -HYDR-971 PO
[2018-10-09 10:40] VITALS: BP 152/93
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
== END 2018-10-09 11:00 | disposition home or self-care (01) ==
LOC: ER 10:34
DX: S69.92XA Unspecified injury of left wrist, hand and finger(s), initial encounter (principal); F29 Unspecified psychosis not due to a substance or known physiological condition; X58.XXXA Exposure to other specified factors, initial encounter; Y93.89 Activity, other specified; Y92.89 Other specified places as the place of occurrence of the external cause; Y99.8 Other external cause status
CPT/HCPCS: 99284

== ENCOUNTER 2020-09-24 13:30 | Emergency (ER) | payer SELFPAY ==
[~2020-09-24] VITALS: Ht 174 cm; Wt 95.2 kg
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
[2020-09-24 16:15] VITALS: BP 107/60
== END 2020-09-24 16:15 | disposition home or self-care (01) ==
LOC: ER 13:30
DX: S05.12XA Contusion of eyeball and orbital tissues, left eye, initial encounter (principal); R51.9 Headache, unspecified; F41.9 Anxiety disorder, unspecified; K21.9 Gastro-esophageal reflux disease without esophagitis; I10 Essential (primary) hypertension; Y08.89XA Assault by other specified means, initial encounter; Y93.89 Activity, other specified; Y92.89 Other specified places as the place of occurrence of the external cause; Y99.8 Other external cause status
CPT/HCPCS: 70450; 70486; 99285-25

== ENCOUNTER 2020-11-28 13:36 | Emergency (ER) | payer MEDICAID ==
[~2020-11-28] VITALS: Ht 174 cm; Wt 95.2 kg
[~2020-11-28 13:36] MED LIST changes: -CLIN300C8 PO; +CLIN300C9 PO
--- NOTE | 2020-11-28 15:23 | RAD ---
Study: XR HAND 3 VIEWS Indication: Bilateral hand swelling. Comparison: Right hand radiographs 08/08/2016 Findings: Right hand: Short fifth more so than fourth metacarpals. Healed fifth and possibly fourth metacarpal fractures. N o acute fracture or focal erosion. Nonspecific edematous soft tissues along the dorsum of the hand ce ntered over the metacarpals. No retained radiopaque foreign body. Left hand: Mildly short fourth and fifth metacarpals. No acute fracture or focal erosion. Edematous soft tissues mainly the dorsum of the hand centered on the metacarpals. Impression: Right and left hands: 1. Nonspecific edematous soft tissues mainly along the dorsum of both hands. No metallic retained for eign body. 2. No acute osseous abnormality on either side. Electronically signed by: FERN CHEN MD (11/28/2020 3:20 PM) [facility]
[2020-11-28 15:28] LABS: BASO # 0.1 x10^3/uL (0.0-0.2); BASO % 1 % (0-3); EOS # 0.2 x10^3/uL (0.0-0.7); EOS % 2 % (0-3); HEMOGLOBIN 12.6 g/dL (13.0-17.5); LYMPH # 2.7 x10^3/uL (1.0-4.8); LYMPH % 32 % (24-48); MEAN CORPUSCULAR HEMOGLOBIN 30 pg (25-35); MEAN CORPUSCULAR HGB CONC 33 g/dL (31-37); MEAN CORPUSCULAR VOLUME 89 fL (79-100); MONO # 0.6 x10^3/uL (0.0-1.1); MONO % 8 % (0-9); NEUT # 4.9 x10^3uL (1.8-7.7); NEUT % 58 % (31-73); PLATELET COUNT 246 x10^3/uL (140-400); RED BLOOD COUNT 4.25 x10^6/uL (4.30-5.70); RED CELL DISTRIBUTION WIDTH 14.4 % (11.5-14.5); WHITE BLOOD COUNT 8.4 x10^3/uL (4.0-11.0)
[2020-11-28 15:49] LABS: CALCIUM 8.5 mg/dL (8.5-10.1); GFR 78.5; POTASSIUM 4.2 mmol/L (3.5-5.1)
[2020-11-28 15:56] LABS: ALBUMIN 3.2 g/dL (3.4-5.0); ALBUMIN/GLOBULIN RATIO 0.9 (1.0-1.7); C REACTIVE PROTEIN 2.6 mg/L (0-3.3); TOTAL BILIRUBIN 0.3 mg/dL (0.2-1.0); TOTAL PROTEIN 6.6 g/dL (6.4-8.2)
[2020-11-28 16:15] VITALS: BP 157/76
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
== END 2020-11-28 16:42 | disposition home or self-care (01) ==
LOC: ER 13:39
DX: Z77.098 Contact with and (suspected) exposure to other hazardous, chiefly nonmedicinal, chemicals (principal); R22.33 Localized swelling, mass and lump, upper limb, bilateral; F41.9 Anxiety disorder, unspecified; K21.9 Gastro-esophageal reflux disease without esophagitis; I10 Essential (primary) hypertension
CPT/HCPCS: 36415; 73130; 80053; 85025; 86140; 86803; 99284

== ENCOUNTER → 2021-04-07 | Outpatient (CLI) | payer MEDICAID ==
[2021-04-07 14:00] LABS: ALBUMIN 3.7 g/dL (3.4-5.0); ALBUMIN/GLOBULIN RATIO 1.2 (1.0-1.7); CALCIUM 8.7 mg/dL (8.5-10.1); GFR 78.5; POTASSIUM 4.6 mmol/L (3.5-5.1); TOTAL BILIRUBIN 0.3 mg/dL (0.2-1.0); TOTAL PROTEIN 6.9 g/dL (6.4-8.2)
[2021-04-08 03:09] LABS: TESTOSTERONE TOTAL 326 ng/dL (264-916)
== END ==
LOC: LAB 12:41
PROVIDERS: ATTEND General Practice
DX: R79.89 Other specified abnormal findings of blood chemistry (principal)
CPT/HCPCS: 36415; 80053; 82626; 84403